=== PATIENT | male | born 1970 | race Caucasian/White ===

== ENCOUNTER 2022-06-29 06:01 | Observation (INO) ==
--- NOTE | 2022-06-08 14:50 | PAT Medication Instructions ---
Medication Instructions Date of Service June 08, 2022 Home Medications fluticasone propionate 110 mcg/actuation HFA aerosol inhaler 2 puff inhalation BID mometasone 50 mcg/actuation nasal spray 2 spray intranasal HS PRN valsartan 40 mg tablet 40 mg PO HS Take morning of surgery With a small sip of water, OTHERWISE NOTHING TO EAT OR DRINK AFTER MIDNIGHT: fluticasone propionate 110 mcg/actuation HFA aerosol inhaler 2 puff inhalation BID Take evening before surgery fluticasone propionate 110 mcg/actuation HFA aerosol inhaler 2 puff inhalation BID mometasone 50 mcg/actuation nasal spray 2 spray intranasal HS PRN(if needed) valsartan 40 mg tablet 40 mg PO HS Other Notes If you have any questions please call us at [phone] or [phone] or [phone] or [phone]
--- NOTE | 2022-06-15 10:22 | Anesthesiology Consultation ---
Date of Service June 15, 2022 Assessment & Plan (1) Encounter for pre-operative examination: - surgeon ordered medical clearance 06/17/22. Chart Review Chart Review: Pending: Refer to Additional Notes / Consult section and Patient seen in Pre Admission Testing Teaching & Discussion Pre-Anesthesia Teaching/Discussion Notes: Instructed NPO after midnight before surgery, except medications with 15 cc of water. Medication instructions provided according to the PAT guidelines. History Surgery Operation Date: 06/29/22 13:25 Proposed Procedures p C4-C6 Anterior Cervical Discectomy and Fusion - Herman Conn DO Height/Weight Height: 5 ft 10 in Weight: 91.2 kg Allergies Allergy/AdvReac Type Severity Reaction Status Date / Time No Known Drug Allergies Allergy Verified 06/05/22 08:33 Medications Home Medications Medication Instructions Recorded Confirmed Last Taken fluticasone propionate 110 2 puff inhalation BID 06/05/22 06/05/22 Unknown mcg/actuation HFA aerosol inhaler mometasone 50 mcg/actuation nasal 2 spray intranasal HS PRN allergies 06/05/22 06/05/22 Unknown spray valsartan 40 mg tablet 40 mg PO HS 06/05/22 06/05/22 Unknown Past Medical History Medical History (Updated 06/15/22 @ 10:34 by Maria Eugenia Sebastian PA-C) GERD (gastroesophageal reflux disease) controlled, stable per pt History of asthma maintenance inhaler, denies rescue inhaler use recently History of COVID-19 07/22/20, called and was quarantined, body aches, chills, cough, diarrhea for 2 weeks>resolved 2020, tested at work, "cold symptoms">resolved after a "few days" Hx MRSA infection "back in my 20's, in my finger" Hypertension controlled, stable per pt Nausea after anesthesia Seasonal allergies Patient denies h/o stroke, seizures, heart attack, heart failure, DM, blood clots or blood transfusions. Exercise / Class Metabolic Activity II 4-5 Yardwork/Stairs/Walk up hill (denies CP or SOB with 1 FOS) Past Surgical History Surgical History (Updated 06/15/22 @ 10:33 by Maria Eugenia Sebastian PA-C) Hx of colonoscopy Hx of endoscopic sinus surgery w/septoplasty-PONV Hx of hernia repair bilat. inguinal hernias Hx of vasectomy Past Anesthesia History No Hx of Anesthesia Complications and No Family Hx of Anesthesia Complications History of PONV No Hx of Motion Sickness and History of PONV (denies needing scop patch) Social History Smoking Status: Never smoker Do You Dip or Chew Tobacco: Yes ("years ago, not anymore") Hx Alcohol Use: Yes Alcohol type: beer and wine alcohol intake frequency: a few times a week Hx Substance Use: No substance use type: does not use Review of Systems Patient denies chest pain, shortness of breath, dyspnea on exertion, snoring, witnessed apneas, fever, chills, cough, wheezing, or palpitations. Physical Exam Vital Signs Vitals BP 144/84 P 64 TEMP 97.8 SP02 99% on RA RESP 17 Physical Full cervical extension range of motion without pain TMD 3.5 finger breadths Mallampati Score 3 Dentition: intact, 3 crowns, denies chipped or loose teeth, implants or bridges Lungs: normal respiratory effort. Clear throughout to auscultation, no adventitious breath sounds Cardiac: regular rate and rhythm, no murmurs noted Carotid arteries: negative bruit bilat Lab Results Anesthesia Preop Results Results Anesthesia Widget: WBC 4.42 K/ul (4.8-10.8) L 06/15/22 Hgb 15.5 g/dl (14.0-18.0) 06/15/22 Hct 44.8 % (40.1-51.0) 06/15/22 Plt 240 K/uL (130-400) 06/15/22 Na 138 mmol/L (136-145) 06/15/22 K 4.3 mmol/L (3.5-5.1) 06/15/22 Cl 104 mmol/L (98-107) 06/15/22 CO2 28 mmol/L (21-32) 06/15/22 BUN 15 mg/dl (6-23) 06/15/22 Creat 1.12 mg/dl (0.6-1.4) 06/15/22 Glucose Level 78 mg/dl (70-99(Fasting)) 06/15/22 PT 10.6 Seconds (9.0-12.0) 06/15/22 PTT 27.9 Seconds (21.0-31.0) 06/15/22 INR 1.0 (0.9-1.1) 06/15/22 Urine Color Yellow 06/15/22 Urine Appearance Clear (Clear) 06/15/22 Urine pH 6.5 (4.5-7.5) 06/15/22 Urine Specific [place] 1.020 (1.000-1.030) 06/15/22 Urine Protein Negative (Negative) 06/15/22 Urine Glucose (UA) Negative (Negative) 06/15/22 Urine Ketones Negative (Negative) 06/15/22 Urine Blood Negative (Negative) 06/15/22 Urine Nitrite Negative (Negative) 06/15/22 Urine Bilirubin Negative (Negative) 06/15/22 Urine Urobilinogen Negative (Negative) 06/15/22 Urine Leukocyte Esterase Negative (Negative) 06/15/22 Blood Type O Positive 06/15/22 Antibody Screen NEGATIVE 06/15/22 Testing Electrocardiogram Date: 06/15/22 NSR, rate 60 bpm Incomplete RBBB Left anterior fascicular block Chest X-Ray Date: 06/15/22 Cardiomegaly with no active disease in the chest COVID-19 Risk Screen Screening Information COVID-19 Screen Date: 06/15/22 Exposure 21 Days Family/Household +COVID Last 21 Days: No Exposure 10 Days Any COVID Exposure Last 10 Days: No Symptoms Last 10 Days Experienced COVID Sx Last 10 Days: No + COVID 0-90 Days COVID + in Last 0-90 Days: No
[~2022-06-29 06:01] MED LIST: ACETAMINOPHEN 500 MG TAB PO SCH; CeleBREX 200 MG CAP PO SCH; GABAPENTIN 900 MG DOSE PO SCH; LR 15ML/HR IV SCH; ceFAZolin 2000MG 2,000 MG/15 ML SYR IV SCH
[2022-06-29] MEDS ORDERED: ATROPINE SULFATE 0.1 MG/ML 10ML SYR IV PRN (06:48)
[2022-06-29] MEDS ORDERED: ePHEDrine sulfate 50 MG/ML AMP IV PRN (06:48)
[2022-06-29] MEDS ORDERED: ONDANSETRON INJ 2 MG/ML 2 ML VIAL IV PRN ×2 (06:48→11:36)
[2022-06-29] MEDS ORDERED: MIDAZOLAM HCL 1 MG/ML 2ML VIAL ONE (06:57)
[2022-06-29] MEDS ORDERED: DEXAMETHASONE SOD INJ 4 MG/ML VIAL ONE (06:57)
[2022-06-29] MEDS ORDERED: fentaNYL citrate 100 MCG/2 ML VIAL ONE ×2 (06:57)
[2022-06-29] MEDS ORDERED: NEOSTIGMINE METHYLSULFATE 1 MG/ML 10ML VIAL ONE (06:57)
[2022-06-29] MEDS ORDERED: GLYCOPYRROLATE 0.2 MG/ML VIAL ONE (06:57)
[2022-06-29] MEDS ORDERED: ONDANSETRON INJ 2 MG/ML 2 ML VIAL ONE (06:57)
[2022-06-29] MEDS ORDERED: PROPOFOL IV EMULSION 10 MG/ML 20 ML VIAL IV ONE (06:57)
[2022-06-29] MEDS ORDERED: HYDROmorphone INJ 2 MG/ML SYR/VIAL ONE (06:58)
[2022-06-29] MEDS ORDERED: ceFAZolin 330 MG/ML 1 GM VIAL ONE (07:06)
[2022-06-29] MEDS ORDERED: SCOPOLAMINE 1 MG TDSY TD ONE (07:29)
--- NOTE | 2022-06-29 07:34 | History & Physical Bridge Note ---
Date of Service June 29, 2022 History & Physical Bridge Note I have examined the patient, reviewed the History & Physical and in the interval since the performance of the History & Physical I have noted the following changes of clinical significance: no changes noted
--- NOTE | 2022-06-29 07:35 | History & Physical Report ---
Date of Service June 29, 2022 Assessment & Plan (1) Cervical stenosis of spinal canal: Plan: C4-C6 anterior cervical discectomy and fusion History of Present Illness Chief Complaint: Neck and arm pain Primary Care Provider: Hammad Burton MD This is a 52-year-old male who presents with chronic persistent neck and arm symptoms after failed course of nonoperative care is here for surgical intervention. Allergies Allergy/AdvReac Type Severity Reaction Status Date / Time No Known Drug Allergies Allergy Verified 06/29/22 06:30 Home Medications Medication Instructions Recorded Confirmed Type fluticasone propionate 110 2 puff inhalation BID 06/05/22 06/29/22 History mcg/actuation HFA aerosol inhaler mometasone 50 mcg/actuation nasal 2 spray intranasal HS PRN allergies 06/05/22 06/29/22 History spray valsartan 40 mg tablet 40 mg PO HS 06/05/22 06/29/22 History Past Med/Surg History Medical History (Updated 06/29/22 @ 07:34 by Herman Conn DO) GERD (gastroesophageal reflux disease) controlled, stable per pt History of asthma maintenance inhaler, denies rescue inhaler use recently History of COVID-19 07/22/20, called and was quarantined, body aches, chills, cough, diarrhea for 2 weeks>resolved 2020, tested at work, "cold symptoms">resolved after a "few days" Hx MRSA infection "back in my 20's, in my finger" Hypertension controlled, stable per pt Nausea after anesthesia Seasonal allergies Surgical History Hx of colonoscopy Hx of endoscopic sinus surgery w/septoplasty-PONV Hx of hernia repair bilat. inguinal hernias Hx of vasectomy Social History Smoking Status: Never smoker Second Hand Exposure: No; Do You Dip or Chew Tobacco: Yes ("years ago, not anymore"); Tobacco Cessation Education Requested by Patient: No Hx Alcohol Use: Yes Alcohol type: beer and wine Hx Substance Use: No Preferred Language: Georgian Communication Ability: Effective Hemmer Lockstitch Required: No Beliefs That Will Affect Care: None Current Living Situation: Alone Other Information That Helps Us Care for You: No Feels Safe at Home: Yes Safety Concerns: Feels Safe At This Time Assistive Devices: Glasses Assistive Devices Comment: reading glasses Physical Exam Physical Exam: Patient is alert and oriented Heart regular rhythm Lungs clear Results & Data Results & Data ([facility]) Vital Signs (Past 12 Hours) Vital Signs Temp Pulse Resp BP Pulse Ox O2 Del Method 06/29/22 06:27 36.7 C 69 18 147/95 H 100 Room Air
[2022-06-29] MEDS ORDERED: FLOSEAL HEMOSTATIC MATRIX 10ML TOP ONE (08:46)
--- NOTE | 2022-06-29 09:28 | Operative Report ---
Post Operative Report Pre & Post Diagnosis Operation Date: 06/29/22 07:45 Pre-Op Diagnosis: Cervical spinal stenosis with radiculopathy Post-Op Diagnosis: Same I identified the patient and participated in the time-out.: Yes Procedure Operation Date: 06/29/22 07:45 Actual Procedures #1 anterior cervical discectomy with bilateral foraminotomies C4-C5 C5-C6. #2 anterior cervical arthrodesis C4-C5 C5-C6. #3 placement 8 mm spiral cage filled I factor C4-C5 C5-C6. #4 application of ambassador plate and screws C4-C6. Surgeon Herman Conn, Video Editor Kylie Sosa Estimated Blood Loss 10 Findings Consistent with Post-Op Diagnosis Specimens None Indications This is a 52-year-old male who presents above-mentioned diagnosis after failed course of nonoperative care is here for surgical intervention. Description of Procedure Patient was met with identified informed consent obtained. Patient was then taken to the operative suite underwent ablation placed in the supine position Tod table with head Clark head gauge unit operator. All bony prominences well-padded eyes inspected to ensure no external pressure placed upon them. This point the anterior cervical spine was prepped and draped in a sterile fashion. The assistance of fluoroscopy identify the C5 vertebral body and a transverse incision was placed along the right anterior aspect of the cervical spine overlying his region. Blunt dissection with assistance of Bovie Cardizem performed down to and exposing the anterior cervical spine from C4-C6. Self- retaining retractors placed. Then performed a complete discectomy of C4-C5 out to the uncovertebral joints bilaterally. Removed all posterior annular fibers longitudinal ligament bilateral foraminotomies performed. An 8 mm spiral cage filled with I factor was then tapped in position. Then proceeded to see 5 C6. Again complete discectomy performed out to the uncovertebral joints bilaterally. Again [place] distracting pins were utilized to assist in visualization. Removed all posterior annular fibers longitudinal ligament bilateral foraminotomies performed. Endplates burred to subcortical bleeding bone and again an 8 mm spiral cage filled with I factor tapped in position. Distracting apparatus was removed and all anterior osteophytes burred to a smooth cortical surface and an ambassador plate and screws applied with the assistance of fluoroscopy. The incision was then copiously irrigated explored to ensure no damage to surrounding structures or remaining bleeding. 10 round CORTES drain inserted. The incision was then closed with 2 Vicryl in the fascia and 4 Monocryl for final skin closure. Steri-Strip sterile dressings placed. Patient waken taken to PACU in stable condition. Please note spinal cord monitoring was utilized at the procedure no changes noted. Lastly Kylie Sosa was present at the entire surgeon while the patient positioning complex portions of the surgery and final skin closure. I attest to the content of the Intraoperative Record and any orders documented therein. Any exceptions are noted below.
[2022-06-29] MEDS: fentaNYL citrate 100 MCG/2 ML VIAL IV PRN ×2 (10:25→10:35)
--- NOTE | 2022-06-29 11:13 | Fluoroscopy Report ---
FL cervical 2-3V CLINICAL HISTORY: ACDF C4-6 COMPARISON STUDY: None. FLUOROSCOPY TIME: 19 seconds. FINDINGS: 3 fluoroscopic spot images of the cervical spine demonstrate anterior cervical discectomy a nd fusion from C4 through C6. The hardware appears intact. IMPRESSION: Fluoroscopic assistance provided for C4-C6 ACDF. ACT 112: Negative or not required by law. Electronically signed by: Martin Boudreaux M.D. 06/29/2022 11:12 AM
[2022-06-29] MEDS ORDERED: oxyCODONE HCL IR 5 MG TAB (IMMEDIATE RELEASE) PO PRN (11:36)
[2022-06-29] MEDS ORDERED: HYDROmorphone INJ 1 MG/ML SYRINGE IV PRN (11:36)
[2022-06-29] MEDS ORDERED: RACEPINEPHRINE 2.25% NEBU SOLN 0.5 ML VIAL INH PRN (11:36)
[2022-06-29] MEDS ORDERED: traMADol HCL 50 MG TABLET PO PRN (11:36)
[2022-06-29] MEDS ORDERED: METOCLOPRAMIDE HCL INJ 5 MG/ML 2 ML VIAL IV PRN (11:36)
[2022-06-29] MEDS ORDERED: NALOXONE HCL 0.4 MG/1 ML VIAL/CARP IV PRN (11:36)
[2022-06-29] MEDS ORDERED: MAGNESIUM HYDROXIDE SUSP 30 ML UDC PO PRN (11:36)
[2022-06-29] MEDS ORDERED: PROMETHAZINE HCL 12.5 MG in SODIUM CHLORIDE 0.9% 50 ML IV PRN (11:36)
[2022-06-29] MEDS ORDERED: FAMOTIDINE 20 MG TAB PO PRN (11:36)
[2022-06-29] MEDS ORDERED: dexAMETHasone 8 MG in SYRINGE 0 ML IV PRN (11:36)
[2022-06-29] MEDS ORDERED: ALUMINUM/MAGNESIUM SUSP 30 ML UDC PO PRN (11:36)
[2022-06-29] MEDS ORDERED: LORazepam 0.5 MG TAB PO PRN (11:36)
[2022-06-29] MEDS ORDERED: SOD PHOSPHATE/SOD BIPHOSPHATE ENEMA 132 ML BTL PR PRN (11:36)
[2022-06-29] MEDS ORDERED: bisacodyL 10 MG SUPP PR PRN (11:36)
[2022-06-29] MEDS ORDERED: hydrOXYzine HCl 25 MG TAB PO PRN (11:36)
[2022-06-29] MEDS ORDERED: ACETAMINOPHEN 500 MG TAB PO PRN (11:36)
[2022-06-29] MEDS ORDERED: ONDANSETRON 4 MG OD TAB PO PRN (11:36)
[2022-06-29] MEDS ORDERED: diphenhydrAMINE Capsule 25 MG CAP PO PRN (11:36)
[2022-06-29] MEDS ORDERED: ACETAMINOPHEN 1,000 MG/100 ML VIAL IV PRN (11:36)
[2022-06-29] MEDS ORDERED: HYDROmorphone INJ 0.5 MG/0.5 ML SYR IV PRN (11:36)
[2022-06-29] MEDS ORDERED: LORazepam 0.5 MG in SYRINGE 0 ML IV PRN (11:36)
[2022-06-29] MEDS: LACTATED RINGER'S 1,000 ML IV SCH ×2 (11:50→18:26)
[2022-06-29] MEDS ORDERED: FLUTICASONE PROPIONATE NA SPR 16 GM BTL PRN (11:50)
--- NOTE | 2022-06-29 12:40 | Anesthesiology Progress Note ---
Date of Service June 29, 2022 Anesthesia Post Procedure Vital Signs Vital Signs: Temp Pulse Pulse Resp BP Pulse Ox O2 Del Method 06/29/22 11:36 97.5 F L 71 16 134/83 96 Nasal Cannula 06/29/22 11:56 81 18 100 Nasal Cannula 06/29/22 12:00 97.9 F 63 14 119/80 99 Nasal Cannula 06/29/22 11:10 61 16 118/71 97 Nasal Cannula 06/29/22 11:00 96.8 F L 61 16 124/77 94 Nasal Cannula 06/29/22 10:50 67 12 132/75 97 Nasal Cannula 06/29/22 10:40 68 14 130/70 94 Nasal Cannula 06/29/22 10:20 79 14 131/79 96 Oxymask 06/29/22 10:10 62 14 130/79 99 Oxymask 06/29/22 10:30 70 12 147/87 H 99 Oxymask 06/29/22 10:00 66 14 137/83 97 Oxymask 06/29/22 09:50 78 15 151/88 H 99 Oxymask 06/29/22 09:40 96.8 F L 96 H 12 140/84 99 Oxymask 06/29/22 06:27 98.1 F 69 18 147/95 H 100 Room Air O2 Flow Rate 06/29/22 11:36 2 06/29/22 11:56 2 06/29/22 12:00 2 06/29/22 11:10 3 06/29/22 11:00 3 06/29/22 10:50 3 06/29/22 10:40 3 06/29/22 10:20 5 06/29/22 10:10 5 06/29/22 10:30 5 06/29/22 10:00 5 06/29/22 09:50 9 06/29/22 09:40 9 06/29/22 06:27 Pain Intensity Right Neck: Pain Intensity: 2 Transfer of Care Handoff Completed per policy Notes Mental Status: alert / awake / arousable and participated in evaluation Patient Amnestic to Procedure: Yes Nausea / Vomiting: adequately controlled Pain: adequately controlled Airway Patency, RR, SpO2: stable & adequate BP & HR: stable & adequate Hydration State: stable & adequate Anesthetic Complications: no major complications apparent and Pt Satisfied with anesthetic care
[2022-06-29] MEDS ORDERED: COUGH DROP (SUGAR FREE) LOZ 24 LOZ/1 BOX BUCCAL PRN (16:07)
[2022-06-29] MEDS ORDERED: COUGH DROP (SUGAR FREE) LOZ 24 LOZ/1 BOX BUCCAL ONE (16:10)
[2022-06-29] MEDS: CHECK SCOPOLAMINE PATCH PLACEMENT SCH (16:16)
[2022-06-29] MEDS: ceFAZolin 2000MG 2,000 MG/15 ML SYR IV SCH (16:17)
[2022-06-29] MEDS ORDERED: VALSARTAN 80 MG TAB PO SCH (21:00)
[2022-06-29] MEDS ORDERED: DOCUSATE SODIUM/SENNA 50/8.6MG TAB PO SCH (21:00)
[2022-06-30] MEDS: CHECK SCOPOLAMINE PATCH PLACEMENT SCH ×2 (00:06→08:48)
[2022-06-30] MEDS: ceFAZolin 2000MG 2,000 MG/15 ML SYR IV SCH (00:06)
[2022-06-30] MEDS ORDERED: POLYETHYLENE (MIRALAX) 17 GM PACK PO SCH (06:00)
--- NOTE | 2022-06-30 08:10 | Discharge Summary ---
Date of Service June 30, 2022 Admission HPI Per Admitting Provider This is a 52-year-old male who presents with chronic persistent neck and arm symptoms after failed course of nonoperative care is here for surgical intervention. Principal Diagnosis Cervical spinal stenosis with radiculopathy Discharge Data Allergies Allergy/AdvReac Type Severity Reaction Status Date / Time No Known Drug Allergies Allergy Verified 06/29/22 06:30 Procedures Performed Operation Date: 06/29/22 07:45 Actual Procedures p C4-C6 Anterior Cervical Discectomy and Fusion Spinal Cord Monitoring(Not Applicable) - Herman Conn DO Ordered Studies 06/29/22 07:45 [place] cervical 2-3V Routine Hospital Course (1) Cervical stenosis of spinal canal: Patient underwent anterior cervical discectomy and fusion tolerated this well was taken to orthopedic for postoperative. Postop day 1 swallowing well no hoarseness. Arm symptoms improved. Separately discharged home. Discharge orders instructions from the chart for further review. Total Time Total Time Spent Total Time Spent (In Minutes): 29 Discharge Plan Discharge Items Patient Disposition: Home - Self-Care Reason For Visit: Spinal Stenosis, Cervical Region Discharge Diagnosis: Cervical spinal stenosis with radiculopathy Activity: As commented below Non-emergency contact: Primary Care Provider Call non-emergency contact if: you have any medication questions Follow-up/Referrals: Hammad Burtno MD [Primary Care Provider] - Diet: Regular Addtl Attending Provider Instructions: ACTIVITY RECOMMENDATIONS: SELF CARE INSTRUCTIONS AFTER CERVICAL FUSIONS 1. No smoking. Smoking drastically decreases the chance of a solid fusion. 2. No bending, lifting more than 5 pounds, or twisting (roll like a log when turning in bed). 3. You may shower 3 days after surgery. Thoroughly dry wound. Do not soak in the tub. 4. Cervical collar: Must be worn at all times including sleeping. You may remove the brace only to bath, eat and if you are sitting in a recliner. 5. Please walk as much as you can for exercise. Gradually increase the distance that you walk as your endurance increases. SPECIAL CARE INSTRUCTIONS: VERY IMPORTANT TO READ AND REVIEW A. Do not take any anti-inflammatory medications (i.e. Indocin, Advil, Aspirin, Naprosyn, Aleve, Motrin, etc.) as these may inhibit the chance of a solid fusion. Tylenol is okay to take. B. Your surgical incision has been closed with a cosmetic suture under the skin that will dissolve in about 6 weeks. In 14 days, you can use a pair of clean scissors and cut the suture that is left outside of the skin at the ends of your incision. C. Complications are uncommon, but please contact us if you have any signs or symptoms of: 1. wound infection (fever higher than 102.5 degrees F, redness, separation of wound, drainage, or increasing pain from the incision) 2. blood clots in legs (pain, swelling, redness and warmth in legs) 3. urinary tract infection (fever higher than 102.5 degrees, burning upon urination or increased frequency of urination) 4. nerve problems (inability to walk on your toes or heels, numbness, loss of bowel or bladder control) 5. any other symptoms that concern you. D. Please call the office at if you have any concerns or questions about your operation or recovery. MANAGING PAIN AFTER SPINAL SURGERY 1. Narcotic medication is intended for short-term use and will be provided for surgical pain. Surgical pain usually lasts for a period of 4-6 weeks. Narcotic medication includes Percocet, Vicodin, Darvocet, Tylenol #3 or Lortab. 2. Longer-term pain is more appropriately treated with non-narcotic medication such as Tylenol ES. 3. Muscle spasm is not appropriately treated with narcotics. Muscle relaxers such as Soma, Flexeril or Skelaxin can be used along with Tylenol ES. 4. Remember that we all live with some "aches and pains". This is not unusual or uncommon after an injury or as we get older. 5. We will provide appropriate medication within the normal guidelines of their prescribed use. We will also be very cautious and aware of potential abuse and extended duration of patients' medication needs. 6. Please allow 2-3 days to process refills. Prescriptions will not be mailed but must be picked up at the office. FOLLOW UP VISIT: Keep your scheduled follow-up appointment. Any questions, please call the office at . Pending Studies at Discharge: No Stand-Alone Forms: My [employer], Smoking Cessation Medications and DC Order Prescriptions: New tramadol 50 mg tablet 50 mg PO Q6H PRN (Reason: pain, moderate) Qty: 20 0RF oxycodone 5 mg tablet 5 mg PO Q6H PRN (Reason: pain, severe) Qty: 20 0RF Continued mometasone 50 mcg/actuation [place],Non-Aerosol 2 spray INTRANASAL HS PRN (Reason: allergies) Rx Instructions: administer into each nostril fluticasone propionate 110 mcg/actuation Hfa Aerosol Inhaler 2 puff INHALATION BID valsartan 40 mg Tablet 40 mg PO HS Discharge Orders: Discharge Order (Routine); Ordered 06/30/22 Ordered By: Herman Conn Admission Data Admit Date/Time: 06/29/22 09:30 Attending Provider: Herman Conn Admit Provider: Herman Conn Primary Care Provider: Hammad Burton
[2022-06-30] MEDS ORDERED: FLUTICASONE FUROATE 200MCG 14 PUFFS/INHALER INH SCH (09:00)
[2022-06-30] MEDS ORDERED: dexAMETHasone 6 MG in SYRINGE 0 ML IV SCH (09:00)
== END 2022-06-30 11:45 | disposition home or self-care (01) ==
LOC: ASU 06:01 → INTOOBSV 09:30 → 3E 09:30